=== PATIENT | female | born 1980 | race Caucasian/White ===

== ENCOUNTER 2017-09-04 07:46 | Observation (INO) | payer OTHER ==
[~2017-09-04] VITALS: Ht 167.6 cm; Wt 92.8 kg
--- NOTE | 2017-09-04 05:14 | MH ---
cc: REINALDO ARREGUIN DATE OF ADMISSION: 09/04/2017 DATE OF 1980 HISTORY OF PRESENT ILLNESS The patient is a 37-year-old 2, para 2 who presents with a history of heavy, painful cycles. The patient has tried oral contraceptive pills without improvement in her symptoms and now desires operative intervention. PAST MEDICAL HISTORY Her past medical history significant for exercise-induced asthma. PAST SURGICAL HISTORY Open appendectomy. OB HISTORY Two pregnancies with vaginal deliveries. Her largest child weighed 8 pounds, 2 ounces. [employer]ENER HISTORY No STDs or abnormal cycles. Her cycles have been heavy and painful and not improved with OCPs or ibuprofen. SOCIAL HISTORY Positive for being a smoker. She also drinks alcohol socially as well. No street drugs. The patient is and works at [employer]. FAMILY HISTORY The patient's mother had breast cancer at age 65. Maternal grandmother had breast cancer at age 80 and a maternal great-grandmother also had breast cancer postmenopausal. MEDICATIONS Currently are none. ALLERGIES None. PHYSICAL EXAMINATION VITAL SIGNS: Her height is 5'7". Her weight is 207. Her blood pressure is 102/60. GENERAL: She is in no acute distress. HEART: Regular rate and rhythm. LUNGS: Clear to auscultation bilaterally. ABDOMEN: Soft, nontender, nondistended. PELVIC: On bimanual exam the patient has an 8-10 weeks' sized uterus. No adnexal masses are noted. IMPRESSION Menorrhagia/dysmenorrhea. PLAN Laparoscopic-assisted vaginal hysterectomy with bilateral salpingectomies. The risks, benefits and alternatives have been reviewed. The patient does desire to proceed. Reinaldo Arreguin MD TEG/SSB /9:14 PM /4:47 AM
[~2017-09-04 07:46] MED LIST: OXYC-360 PO; PREN0.01 PO
[2017-09-04] MEDS ORDERED: POVIDONE IODINE 5% (ANTISEPSIS KIT) 4 APPLICATIONS EACH NARE PRN (08:30)
[2017-09-04] MEDS ORDERED: SODIUM CHLORID 0.9% 500 ML IV PRN (08:30)
[2017-09-04] MEDS ORDERED: METOPROLOL TARTRATE 25 MG TAB PO PRN (08:30)
[2017-09-04] MEDS ORDERED: CHLORHEXIDINE GLUCONATE 2 % 1 PACK (2 CLOTHS) TOPICAL PRN (08:30)
[2017-09-04] MEDS ORDERED: LACTATED RINGER'S 1000 ML IV PRN (08:30)
[2017-09-04 09:24] LABS: AUTOMATED NEUTROPHIL # 2.6 TH/MM3 (1.8-7.7); BASOPHIL % 0.9 % (0.0-2.0); EOSINOPHIL # 0.3 TH/MM3 (0-0.4); EOSINOPHIL % 6.6 % (0.0-4.0); HEMATOCRIT 40.7 % (35.0-46.0); HEMOGLOBIN 13.9 GM/DL (11.6-15.3); LYMPH % 31.7 % (9.0-44.0); LYMPHOCYTE # 1.6 TH/MM3 (1.0-4.8); MEAN CORPUSCULAR HEMOGLOBIN 30.4 PG (27.0-34.0); MEAN CORPUSCULAR HGB CONC 34.1 % (32.0-36.0); MEAN PLATELET VOLUME 8.6 FL (7.0-11.0); MONO % 8.7 % (0.0-8.0); MONOCYTE # 0.4 TH/MM3 (0-0.9); NEUT % 52.1 % (16.0-70.0); PLATELET COUNT 192 TH/MM3 (150-450); RED BLOOD COUNT 4.57 MIL/MM3 (4.00-5.30); RED CELL DISTRIBUTION WIDTH 12.9 % (11.6-17.2)
[2017-09-04] MEDS ORDERED: SUGAMMADEX SODIUM 200 MG/2 ML VIAL IV PUSH ONE (09:51)
[2017-09-04] MEDS ORDERED: ACETAMINOPHEN 1000 MG/100 ML 100 ML IV ONE (09:51)
[2017-09-04] MEDS ORDERED: BUPIVACAINE/EPINEPHRINE 0.25% 50 ML VIAL ONE (09:51)
[2017-09-04] MEDS: ceFAZolin 2 GM PREMIX 50 ML IV SCH ×2 (10:04→10:47)
[2017-09-04] MEDS ORDERED: GLYCOPYRROLATE 1 MG/5 ML SYRINGE IV PUSH ONE (12:00)
[2017-09-04] MEDS ORDERED: LACTATED RINGER'S 1000 ML INJ 1,000 ML IV ONE (12:00)
[2017-09-04] MEDS ORDERED: ESMOLOL HCL 100 MG/10 ML VIAL IV ONE (12:00)
[2017-09-04] MEDS ORDERED: ROCURONIUM INJ 50 MG/5 ML SYRINGE IV PUSH ONE (12:00)
[2017-09-04] MEDS ORDERED: KETOROLAC TROMETHAMINE 30 MG/ML (IVP) VIAL IV PUSH ONE (12:00)
[2017-09-04] MEDS ORDERED: LIDOCAINE HCL 1% PF 5 ML SYRINGE OTHER ONE (12:00)
[2017-09-04] MEDS ORDERED: DEXAMETHASONE SOD PHOS 4 MG/ML VIAL IV ONE (12:00)
[2017-09-04] MEDS ORDERED: NEOSTIGMINE 5 MG/5 ML SYRINGE IV PUSH ONE (12:00)
[2017-09-04] MEDS ORDERED: PROPOFOL 200 MG/20 ML AMP IV ONE (12:00)
[2017-09-04] MEDS ORDERED: ONDANSETRON HCL 4 MG/2 ML VIAL IV PUSH ONE (12:00)
[2017-09-04] MEDS ORDERED: ESTROGENS CONJUGATED VAG CREA 15 APPL/30 GM TUBE ONE (13:00)
[2017-09-04] MEDS ORDERED: DO NOT ADM ANY ANTICOAGULANT DRUGS PRN (13:40)
[2017-09-04] MEDS ORDERED: ONDANSETRON ODT 4 MG TAB PO PRN (13:45)
[2017-09-04] MEDS ORDERED: diphenhydrAMINE HCL 25 MG CAP PO PRN (13:45)
[2017-09-04] MEDS ORDERED: NALOXONE HCL 0.4 MG/ML AMP IV PUSH PRN (13:45)
[2017-09-04] MEDS ORDERED: oxyCODONE/ACETAMINOPHEN 5 MG/325 MG TAB PO PRN ×2 (13:45)
[2017-09-04] MEDS ORDERED: SODIUM CHLORIDE 0.9% FLUSH 10 ML FLUSH IV FLUSH PRN (13:45)
[2017-09-04] MEDS ORDERED: ONDANSETRON HCL 4 MG/2 ML VIAL IVP PRN (13:45)
[2017-09-04] MEDS ORDERED: MORPHINE SULFATE 4 MG/ML INJ ONE (13:46)
[2017-09-04] MEDS ORDERED: MIDAZOLAM HCL 2 MG/2 ML VIAL ONE (13:46)
[2017-09-04] MEDS ORDERED: *ONDANSETRON 4 MG VIAL PERIprocedural Use ONLY ONE (13:52)
[2017-09-04] MEDS: LACTATED RINGER'S 1000 ML INJ 1,000 ML IV SCH ×2 (14:00→22:00)
[2017-09-04] MEDS ORDERED: KETOROLAC TROMETHAMINE 30 MG/ML (IVP) VIAL IVP PRN (14:00)
[2017-09-04] MEDS: MORPHINE SULFATE 30 MG/30 ML PCA IV SCH ×2 (14:14→23:01)
[2017-09-04] MEDS: PCA - TOTAL MG MORPHINE DELIVERED PER SHIFT SCH (14:30)
[2017-09-04 15:05] VITALS: BP 98/59; PULSE 67; RESP 16; TEMP 97.7
[2017-09-04] MEDS ORDERED: PROMETHAZINE INJ 25 MG/ML VIAL IM PRN (16:30)
[2017-09-04] MEDS ORDERED: PROMETHAZINE HCL 25 MG TAB PO PRN (16:30)
[2017-09-04] MEDS ORDERED: IBUPROFEN 600 MG TAB PO PRN (17:00)
[2017-09-04 18:13] VITALS: BP 107/67; PULSE 74; RESP 16; TEMP 97.6; O2SAT 99
[2017-09-04 20:00] VITALS: BP 106/51; PULSE 63; RESP 16; TEMP 97.6; O2SAT 99
[2017-09-04] MEDS ORDERED: SODIUM CHLORIDE 0.9% FLUSH 10 ML FLUSH IV FLUSH SCH (21:00)
[2017-09-04] MEDS ORDERED: ZOLPIDEM TARTRATE 5 MG TAB PO PRN (21:00)
[2017-09-05 00:30] VITALS: BP 94/58; PULSE 78; RESP 16; TEMP 98.3; O2SAT 98
[2017-09-05 05:20] VITALS: BP 103/55; PULSE 70; RESP 16; TEMP 98.5
[2017-09-05 05:58] LABS: AUTOMATED NEUTROPHIL # 6.5 TH/MM3 (1.8-7.7); BASOPHIL % 0.2 % (0.0-2.0); EOSINOPHIL # 0.1 TH/MM3 (0-0.4); EOSINOPHIL % 0.8 % (0.0-4.0); HEMATOCRIT 28.9 % (35.0-46.0); HEMOGLOBIN 10.2 GM/DL (11.6-15.3); LYMPH % 18.9 % (9.0-44.0); LYMPHOCYTE # 1.7 TH/MM3 (1.0-4.8); MEAN CELL VOLUME 88.4 FL (80.0-100.0); MEAN CORPUSCULAR HEMOGLOBIN 31.1 PG (27.0-34.0); MEAN CORPUSCULAR HGB CONC 35.1 % (32.0-36.0); MEAN PLATELET VOLUME 8.3 FL (7.0-11.0); MONO % 7.9 % (0.0-8.0); MONOCYTE # 0.7 TH/MM3 (0-0.9); NEUT % 72.2 % (16.0-70.0); PLATELET COUNT 181 TH/MM3 (150-450); RED BLOOD COUNT 3.27 MIL/MM3 (4.00-5.30); RED CELL DISTRIBUTION WIDTH 12.9 % (11.6-17.2)
[2017-09-05] MEDS: PCA - TOTAL MG MORPHINE DELIVERED PER SHIFT SCH (06:00)
[2017-09-05] MEDS: LACTATED RINGER'S 1000 ML INJ 1,000 ML IV SCH (06:00)
[2017-09-05 06:07] LABS: BICARBONATE 26.4 MEQ/L (21.0-32.0); CALCIUM 7.9 MG/DL (8.5-10.1); CREATININE 0.85 MG/DL (0.50-1.00)
[2017-09-05 08:00] VITALS: BP 103/63; PULSE 62; RESP 18; TEMP 97.9
[2017-09-05 12:00] VITALS: BP 99/48; PULSE 66; RESP 18; TEMP 98.2
[2017-09-05] MEDS ORDERED: IBUP-232 PO (12:44)
[2017-09-05] MEDS ORDERED: OXYC1TAB63 PO (12:44)
--- NOTE | 2017-09-05 12:45 | HHI.DCPOC ---
Discharge Care Plan Diagnosis: (1) Menorrhagia with irregular cycle (2) Dysmenorrhea Report Symptoms to Your Doctor -Temperature above 100.5 degrees -Redness, of incision or excessive or foul smelling drainage -Unusual pain or calf pain -Increased vaginal bleeding -Painful or difficulty urinating -Feelings of extreme sadness or anxiety after 2 weeks Goals to Promote Your Health * To prevent worsening of your condition and complications * To maintain your health at the optimal level Directions to Meet Your Goals Take your medications as prescribed Follow your dietary instruction Follow activity as directed Ensure plenty of rest for recovery Drink fluids for hydration Keep your appointments as scheduled Take your immunizations and boosters as scheduled If your symptoms worsen call your PCP, if no PCP go to Urgent Care Center or Emergency Room Smoking is Dangerous to Your Health. Avoid second hand smoke Call the 24-hour crisis hotline for domestic abuse at Reinaldo Marin MD Sep 05, 2017 12:44
--- NOTE | 2017-09-05 12:48 | HHI.DS ---
Discharge Summary Admission Date Sep 04, 2017 at 13:39 Discharge Date: Sep 05, 2017 Admitting Diagnosis menorrhagia, dysmenorrhea Procedures LAVH, B/L salpingectomies CBC/BMP: 09/05/17 0537 09/05/17 0537 Significant Findings Laboratory Tests Test 09/04/17 09:05 09/05/17 05:37 Monocytes (%) (Auto) 8.7 % (0.0-8.0) Eosinophils (%) (Auto) 6.6 % (0.0-4.0) Red Blood Count 3.27 MIL/MM3 (4.00-5.30) Hemoglobin 10.2 GM/DL (11.6-15.3) Hematocrit 28.9 % (35.0-46.0) Neutrophils (%) (Auto) 72.2 % (16.0-70.0) Calcium Level 7.9 MG/DL (8.5-10.1) Chloride Level 108 MEQ/L (98-107) Estimat Glomerular Filtration Rate 75 ML/MIN (>89) Hospital Course pt was admitted for surgery on 09/04/17. by 09/05/17 pt was voiding, yonny po, with good pain control and requesting d/c home. Pt Condition on Discharge: Stable Discharge Disposition: Discharge Home Discharge Instructions DIET: Follow Instructions for: As Tolerated, No Restrictions Activities you can perform: Shower Only-No Bath Activities to avoid: Weight Bearing, Prolonged Standing, Strenuous Activity, Sexual Activity Additional Activity Instructio: no driving until off pain meds. no sex, tampons or douching for 6 wks Reinaldo Marin MD Sep 05, 2017 12:47
--- NOTE | 2017-09-06 07:24 | MP ---
cc: REINALDO ARREGUIN DATE OF SURGERY 09/04/2017 PREOPERATIVE DIAGNOSIS Menorrhagia, dysmenorrhea. POSTOPERATIVE DIAGNOSIS Menorrhagia, dysmenorrhea. PROCEDURE Laparoscopic-assisted vaginal hysterectomy with bilateral salpingectomies. SURGEON Reinaldo Arreguin MD ANESTHESIA General plus local ESTIMATED BLOOD LOSS 600 cc. DRAINS Garcia to gravity SPECIMENS Uterus, cervix and bilateral tubes COUNTS Correct x2. IV FLUIDS 2 liters of LR. URINE OUTPUT 300 cc of clear yellow urine. DESCRIPTION OF PROCEDURE After informed consent obtained, the patient was taken to the operating room. She was prepped and draped in a normal sterile fashion for surgery with her legs in the universal stirrups. A speculum was inserted into the vagina. The anterior lip of the cervix was grasped using single-tooth tenaculum and the uterine manipulator is placed. A Garcia catheter is also placed sterilely. Next, gloves were changed and attention was turned to the abdominal portion of the case. The umbilical fold was injected with quarter percent Marcaine with epinephrine and a 5 mm skin incision was made and a 5 mm trocar was inserted. Next, pneumoperitoneum is obtained. The patient had a grossly normal-appearing uterus, normal fallopian tubes and ovaries. In the right lower quadrant there were some omental adhesions secondary to the patient having had an open appendectomy. The liver edge and gallbladder were grossly within normal limits. Two additional trocar sites were placed, one in the left lower quadrant, one in the right lower quadrant both 5 mm. Next, the mesosalpinx along the patient's left fallopian tube was cauterized and divided. The round ligament was then divided along with the utero-ovarian ligament and the bladder flap was then developed taking down the vesicouterine peritoneum. The same procedure was then carried out on the patient's right side. Once this was done, several bites of the uterine artery were taken, cauterizing and dividing the uterine artery on the right side and then on the left side. There was a little bit of back-bleeding that was noted and this was suction irrigated without difficulty. Next, once bites had been taken, attention was then turned to the vaginal portion of the case. The abdomen was deflated. A weighted speculum was inserted into the vagina. The anterior lip of the cervix was grasped using the Mario tenaculums anteriorly and posteriorly. The patient was noted to have somewhat redundant vaginal tissue posteriorly thus a long billed speculum was inserted prior to getting into the posterior cul-de-sac. The cervix was circumferentially incised using the Bovie and the anterior cul-de-sac was entered without difficulty. Next, the posterior cul-de-sac was attempted to be entered and the pararectal space was inadvertently entered. There was noted to be no fecal contents, there was just bleeding, thus the correct space was identified in the posterior cul-de-sac. The peritoneum was grasped from the posterior cul-de-sac and the posterior vagina and this tissue was reapproximated in a running locked stitch. Once this was done, hemostasis was obtained. The weighted speculum was inserted into the posterior cul-de-sac and the uterosacral ligaments were clamped, cut and suture ligated and then successive bites were taken along the cardinal ligaments until the uterus was free of its abdominal pelvic attachments. Once this was done, the uterus was delivered without difficulty. All pedicles were then inspected and noted to be hemostatic. The anterior and posterior vagina were reapproximated using [id number] stitches. When this was done, the vagina was then packed with vaginal packing and Premarin vaginal cream. Once this was done, gloves were changed and attention was turned back to the abdominal portion of the case. The abdomen was re-insufflated. All pedicles remained hemostatic and at this point, it was felt that the procedure was complete. The abdomen was deflated. All trocars were removed. The skin was closed using 4-0 Monocryl sutures in a subcuticular fashion. The patient was then awakened, extubated and taken to the recovery room in stable condition. MD YOSEF Mann/NADEEM /10:53 PM /7:07 AM
== END 2017-09-05 13:09 | disposition home or self-care (01) ==
LOC: HSDC 07:46 → HSDI 13:39 → H1EA 14:34
PROVIDERS: ADMIT Obstetrics & Gynecology; ATTEND Obstetrics & Gynecology
DX: N92.0 Excessive and frequent menstruation with regular cycle (principal); N94.6 Dysmenorrhea, unspecified; J45.990 Exercise induced bronchospasm; F17.200 Nicotine dependence, unspecified, uncomplicated
CPT/HCPCS: 00840; 58552; 80048; 84703; 85025; 86850; 86900; 86901; 88307; 94150; 96374; 96376; G0378; J0131; J0690; J1100; J1885; J2250; J2270; J2405; J2710; J3010; J7120